=== PATIENT | male | born 1990 | race Caucasian/White ===

== ENCOUNTER 2024-06-02 10:12 | Emergency (ER) | payer OTHER, SELFPAY ==
[2024-06-02 10:30] VITALS: BP 111/70; PULSE 99; RESP 20; TEMP 36.6; O2SAT 99; BMI 35.0
--- NOTE | 2024-06-02 11:20 | ED.ANIMALBIT ---
HPI - Animal Bite General Chief Complaint: Animal Bite Stated Complaint: Dog bite lip Time Seen by Provider: 06/02/24 10:41 Source: patient Mode of arrival: ambulatory Limitations: no limitations History of Present Illness HPI narrative: Patient is a 34-year-old male who presents emergency department for evaluation. He reports last night around 6-19:00 he was bitten by his ai's dog. He sustained a large laceration to the left side of his lip small laceration to the right upper lip. He was evaluated at an urgent care, his tetanus vaccination was updated and he was advised to come to the emergency department for further evaluation. He was not provided a course of antibiotics. He reports that he presented to [facility], unfortunately after waiting for some hours he opted to leave before having treatment. On arrival today, the Steri-Strips were intact. No surrounding swelling, erythema, warmth, fevers, chills, or pus-like discharge. The dog is up-to-date on rabies vaccination, additionally is in their care for appropriate monitoring. No indication for rabies vaccination at this time. Related Data Previous Rx's ?Medication ?Instructions ?Recorded amoxicillin 875 mg-potassium 1 tab PO BID #13 tabs 06/02/24 clavulanate 125 mg tablet Allergies Allergy/AdvReac Type Severity Reaction Status Date / Time cefprozil [From Cefzil] Allergy Unknown Verified 06/02/24 11:59 Review of Systems Review of Systems: Yes all other systems are reviewed and are negative PMFSH Past Medical History Attestation statement: The following information was validated with the patient. Source: old records reviewed Social History Social History Advance Directives: No Advance Directives Information Provided: Yes Do you have a plan to hurt others: No Plan Physical Exam ED Vital Signs: Vital Signs - 24 hr 06/02/24 10:30 Temperature 97.9 F Pulse Rate 99 Respiratory Rate 20 Blood Pressure 111/70 Pulse Oximetry 99 Oxygen Delivery Method Room Air BMI result Body Mass Index 35.0 Appearance: Alert.?Oriented to person, place and time. No acute distress.?Normal affect. ENT: Pharynx normal.?? Neck: Normal inspection.? Neck supple.?? CVS: Heart sounds normal. Normal heart rate and rhythm.? Pulses normal.?? Respiratory: No respiratory distress.? Lung sounds clear to auscultation bilaterally?? Skin: Skin warm and dry.? Normal skin color.? Steri-Strips lacerations to the left and right upper lip; see [facility] for further detail Extremities: No lower extremity edema.? Neuro: Moves all extremities spontaneously. Sensation intact bilaterally. Ambulates with normal steady gait. Medical Decision Making Medical Decision Making [facility] Narrative: Patient is a 34-year-old male who presents emergency department for evaluation after a dog bite sustained last night, greater than 12 hours ago. He provides me with a photo that shows a gaping laceration to the left upper lip that crosses the vermilion border and extends up towards the nasolabial fold. Lacerations were cleansed extensively with normal saline and the Steri-Strips were removed for assessment. The edges are actually very well approximated at this time. No longer a gaping wound. 4 cm laceration. The right upper lip has a 0.5 cm superficial laceration that crosses the vermilion border as well edges are very well approximated at this time. No active bleeding. No surrounding erythema warmth or pus-like discharge to suggest acute infection. I reviewed this case with my attending who agrees with plan of care at this time, no indication for suture, will close with Steri-Strips given duration and current presentation. Initiating course of antibiotics in the emergency department remainder prescription was sent to his pharmacy. His tetanus vaccine has already been updated. As per HPI, no indication for rabies vaccination at this time. We discussed strict return precautions, signs and symptoms of infection to monitor for and outpatient follow-up with his primary care doctor. All questions answered. Differential Diagnosis Differential Diagnoses: The differential diagnosis associated with the presentation includes Independent Historian Clinical information obtained from an independent historian. History obtained from or confirmed by: Spouse External Record Review External record reviewed: Outpatient record Prescription Management I considered prescription management with: Antibiotic Discharge Plan Discharge Clinical Impression: Dog bite Patient Disposition: Home, Self-Care Instructions: Animal Bite (ED) Additional Instructions: As discussed, monitor the area closely for signs of infection. This includes but is not limited to increased pain, swelling, redness, pus-like discharge, redness extending up the cheek or throughout the face, fevers, chills. A prescription for an antibiotic has been sent to your pharmacy, please complete the entire course. You can take ibuprofen 200 mg, 3 tablets (600mg) every 6-8 hours as needed for pain, in addition to Tylenol 500 mg, 2 tablets (1,000mg) every 4-6 hours as needed for pain, but not to exceed 3 doses daily (3,000mg).? Follow-up with your primary care doctor as needed. You may return back to emergency department any new or worsening symptoms or concerns. Prescriptions: New amoxicillin-pot clavulanate 875-125 mg tablet 1 tab PO BID Qty: 13 0RF Referrals: Physician,None [Primary Care Provider] - Print Language: Kyrgyz
[2024-06-02] MEDS: Amoxicillin/Potassium Clav 875 MG TABLET PO (12:01)
[2024-06-02 12:06] VITALS: BP 111/70; PULSE 99; RESP 20; TEMP 36.6; O2SAT 99
== END 2024-06-02 12:06 | disposition home or self-care (01) ==
PROVIDERS: Emergency Provider Emergency Medicine
DX: S01.551A Open bite of lip, initial encounter (principal); R51.9 Headache, unspecified; W54.0XXA Bitten by dog, initial encounter; Y93.89 Activity, other specified; Y92.098 Other place in other non-institutional residence as the place of occurrence of the external cause; Y99.8 Other external cause status
CPT/HCPCS: 96361; 96372; 96374; 96375; 96376; 99282; 99284